=== PATIENT | female | born 1970 | race Caucasian/White ===

== ENCOUNTER 2021-04-23 12:19 | Emergency (ER) | payer OTHER, SELFPAY ==
[2021-04-23] VITALS (10 sets, daily range): BP systolic 84–150; BP diastolic 57–92; PULSE 74–94; RESP 18–20; TEMP 37.6; O2SAT 86–98; BMI 34.0
--- NOTE | 2021-04-23 13:00 | PC.NURSE ---
Reports that she has been ill since Sunday with cough, muscle ache, abdominal pain, and fatigue. Tested on Sunday at [facility] and found to be positive for covid. Reports abdominal pain with a rating of 8 and describes as sharp.
--- NOTE | 2021-04-23 13:08 | XRR_ITS ---
PROCEDURE INFORMATION: Exam: XR Chest Exam date and time: 04/23/2021 1:08 PM Age: 50 years old Clinical indication: Shortness of breath; Additional info: Covid+, SOB TECHNIQUE: Imaging protocol: XR of the chest. Views: 1 view. COMPARISON: No relevant prior studies available. FINDINGS: Lungs: Unremarkable. No consolidation. Pleural spaces: Unremarkable. No pleural effusion. No pneumothorax. Heart/Mediastinum: Unremarkable. No cardiomegaly. Bones/joints: Unremarkable. XR/XR chest 1V portable [id number] IMPRESSION: No acute findings.
--- NOTE | 2021-04-23 13:13 | W.ED.COVID ---
HPI - COVID General: Chief Complaint: COVID symptoms Stated Complaint: COVID+:FEVER,N/V/D,BODY ACHES,FATIGUE Time Seen by Provider: 04/23/21 12:52 Source: patient, RN notes reviewed and old records reviewed Mode of arrival: ambulatory Limitations: no limitations Triage information: Has fever, cough or shortness of breath. No known COVID + exposure last 14 days History of Present Illness: HPI Narrative: Patient is a 50-year-old female who presents to the emergency department with fever, cough, shortness of breath, nausea and vomiting. Symptoms started 6 days ago and 4 days ago she got tested and tested positive for COVID-19. She has been gradually feeling worse and has gotten to the point where she is so weak and almost too weak to get up so she came into the emergency department to be evaluated. On arrival she was hypoxic in triage with oxygen saturation about 88 percent on room air. She was also hypotensive at the time with blood pressure 84/57. She was then placed on oxygen at 2 L/min following which her saturation improved to around 92-95. MD complaint: known COVID positive Prior covid testing: yes, results known Prior testing date: 04/18/21 COVID 19 common symptoms: positive fever(s), chills, cough, dyspnea, fatigue, body aches, nausea, vomiting and diarrhea COVID 19 other sytmptoms: positive requiring oxygen and lethargy; negative chest pressure, chest pain, pleuritic pain, respiratory distress, cyanosis, confusion, new neurological complaints or other concerning symptoms Onset (ago): day(s) (6) Severity: severe COVID Results: No Data to Display Review of Systems General: Reports: 10 or more systems reviewed and unremarkable except in HPI and below Const: Reports: fever(s), chills, body aches and fatigue Card: Denies: chest pain Resp: Reports: dyspnea GI: Reports: nausea, vomiting and diarrhea Neuro: Denies: confusion Physical Exam Const: COMMON NORMALS: no acute distress, average body habitus, patient oriented x3, no limitations, healthy appearing, alert and well nourished HENMT: COMMON NORMALS: normocephalic, atraumatic and moist oral mucous membranes HEAD & SCALP: normocephalic and atraumatic Neck/C-Spine: COMMON NORMALS: no meningeal signs and no JVD Resp: COMMON NORMALS: normal respiratory effort, No retractions, No use of accessory muscles, clear to auscultation bilaterally and percussion normal AUSCULTATION: clear to auscultation bilaterally PERCUSSION: percussion normal Cardio: COMMON NORMALS: no JVD, regular rate, regular rhythm, S1 normal heart sound present, S2 normal heart sound present, No gallops present (Cardio), No clicks present (Cardio), No murmurs present (Cardio), No rub (Cardio) and Peripheral pulses 2+ throughout RATE: regular rate RHYTHM: regular rhythm HEART SOUNDS: S1 normal heart sound present and S2 normal heart sound present PERIPHERAL PULSES: Peripheral pulses 2+ throughout GI: COMMON NORMALS: Normal to inspection, nondistended, normoactive bowel sounds present, Soft to palpation, non-tender, No hepatosplenomegaly present, no masses and no bruits PALPATION: Yes Soft to palpation and Yes No hepatosplenomegaly present Extremity: COMMON NORMALS: normal to inspection, full ROM, capillary refill normal, no calf tenderness and no pedal edema Neuro: COMMON NORMALS: patient oriented x3 SENSORIUM/ORIENTATION: Yes alert MENINGEAL SIGNS: Yes no meningeal signs Skin: COMMON NORMALS: no rashes or lesions noted, no wounds, turgor normal, no jaundice, no petechiae and no mottling GENERAL SKIN EXAM: no rashes or lesions noted and turgor normal Course Reevaluation(s): Reevaluation #1: Discussed her lab and imaging findings with her. No significant findings. Oxygen saturation improved with 2 L of oxygen. Inflammatory markers are not significantly elevated. We will discharge her home with a prescription for oral dexamethasone and she is placed on home oxygen. She voiced understanding and is in agreement with the plan. Time: 15:44 Vital Signs: Vital signs: Vital Signs Temperature 99.6 F 04/23/21 12:50 Pulse Rate 91 04/23/21 17:25 Respiratory Rate 18 04/23/21 17:25 Blood Pressure 130/92 04/23/21 17:25 Pulse Oximetry 98 04/23/21 17:25 MDM - COVID MDM Narrative: Medical decision making narrative: 50-year-old female patient with COVID-19 and who was feeling progressively worse. In the emergency department she was noted to be mildly hypoxic and requiring 2 L/min of oxygen. Inflammatory markers not significantly elevated and she is discharged home with a prescription for oral dexamethasone and home oxygen. Chest x-ray was negative. Medical Records: Attestation: I reviewed the patient's medical records. Lab Data: Attestation: I reviewed the patient's lab results. Labs: Lab Results 04/23/21 04/23/21 04/23/21 Range/Units 13:59 13:59 13:59 WBC 3.7 L (4.0-10.0) 10^3/ uL RBC 5.20 (4.1-5.3) 10^6/u L Hgb 14.3 (11.5-15.3) g/dL Hct 45.4 (37.0-47.0) % MCV 87.3 (81-99) fL MCH 27.5 L (28.0-34.0) pg MCHC 31.5 (30.0-36.0) g/dL RDW 14.6 (12.1-15.1) % Plt Count 102 L (130-400) 10^3/c mm MPV 12.5 H (7.4-10.4) fL Neut % (Auto) 71.8 % Lymph % (Auto) 18.3 % [place] % (Auto) 9.3 % Eos % (Auto) 0.0 % Baso % (Auto) 0.3 % Neut # (Auto) 2.63 (1.8-7.7) 10^3/u L Lymph # (Auto) 0.7 L (0.8-4.8) 10^3/u L [place] # (Auto) 0.3 (0.2-0.9) 10^3/u L Eos # (Auto) 0.0 (0.0-0.8) 10^3/u L Baso # (Auto) 0.0 (0.0-0.1) 10^3/u L Nucleated RBC % (a uto) 0 % Nucleated RBCs # 0.0 /100WBC Fibrinogen 398 (174-498) mg/dL D-Dimer 0.36 (0-0.59) ug/mIFE U Sodium 141 (136-145) mmol/L Potassium 3.5 (3.5-5.1) mmol/L Chloride 102 (98-107) mmol/L Carbon Dioxide 25 (22-29) mmol/L Anion Gap 17.5 (5-19) BUN 11 (6-20) mg/dL Creatinine 0.9 (0.5-0.9) mg/dL GFR Calculation 65.8 L (90-130) mL/min Glucose 102 (65-115) mg/dL Calculated Osmolal ity 292 (285-295) mOsm/k g Lactic Acid (0.5-2.2) mmol/L Calcium 8.3 L (8.5-10.5) mg/dL Ferritin 94 (15-150) ng/mL Total Bilirubin 0.2 (0.15-1.2) mg/dL AST 17 (0-32) U/L ALT 11 (0-33) U/L Alkaline Phosphata se 35 (35-105) IU/L Lactate Dehydrogen ase 255 H (135-214) U/L Creatine Kinase 68 (26-192) U/L C-Reactive Protein 22.0 H (0.0-4.9) mg/L Total Protein 6.7 (6.6-8.7) g/dL Albumin 3.9 (3.5-5.2) g/dL Globulin 2.8 (1.3-4.6) g/dL Procalcitonin 0.06 (0-0.5) ng/mL 04/23/21 Range/Units 13:59 WBC (4.0-10.0) 10^3/ uL RBC (4.1-5.3) 10^6/u L Hgb (11.5-15.3) g/dL Hct (37.0-47.0) % MCV (81-99) fL MCH (28.0-34.0) pg MCHC (30.0-36.0) g/dL RDW (12.1-15.1) % Plt Count (130-400) 10^3/c mm MPV (7.4-10.4) fL Neut % (Auto) % Lymph % (Auto) % [place] % (Auto) % Eos % (Auto) % Baso % (Auto) % Neut # (Auto) (1.8-7.7) 10^3/u L Lymph # (Auto) (0.8-4.8) 10^3/u L [place] # (Auto) (0.2-0.9) 10^3/u L Eos # (Auto) (0.0-0.8) 10^3/u L Baso # (Auto) (0.0-0.1) 10^3/u L Nucleated RBC % (a uto) % Nucleated RBCs # /100WBC Fibrinogen (174-498) mg/dL D-Dimer (0-0.59) ug/mIFE U Sodium (136-145) mmol/L Potassium (3.5-5.1) mmol/L Chloride (98-107) mmol/L Carbon Dioxide (22-29) mmol/L Anion Gap (5-19) BUN (6-20) mg/dL Creatinine (0.5-0.9) mg/dL GFR Calculation (90-130) mL/min Glucose (65-115) mg/dL Calculated Osmolal ity (285-295) mOsm/k g Lactic Acid 0.9 (0.5-2.2) mmol/L Calcium (8.5-10.5) mg/dL Ferritin (15-150) ng/mL Total Bilirubin (0.15-1.2) mg/dL AST (0-32) U/L ALT (0-33) U/L Alkaline Phosphata se (35-105) IU/L Lactate Dehydrogen ase (135-214) U/L Creatine Kinase (26-192) U/L C-Reactive Protein (0.0-4.9) mg/L Total Protein (6.6-8.7) g/dL Albumin (3.5-5.2) g/dL Globulin (1.3-4.6) g/dL Procalcitonin (0-0.5) ng/mL Imaging Data: CXR: Attestation: I personally reviewed and interpreted this imaging study as follows: Radiologist's impression: [address] [id number] ReportSigned Patient: Marly Deal #: [id number]: 1970Acct#:[id number]/Sex: 50 / FADM Date: 04/23/21Loc: ERRoom/Bed:Attending Dr: Ordering Provider/Ordering MD: Ignacio Mccracken MD, [facility] [place] Date of Service: 04/23/21 Procedure(s): XR chest 1V portable [id number] Accession Number(s): [id number] Report Number: [id number] PROCEDURE INFORMATION: Exam: XR Chest Exam date and time: 04/23/2021 1:08 PM Age: 50 years old Clinical indication: Shortness of breath; Additional info: Covid+, SOB TECHNIQUE: Imaging protocol: XR of the chest. Views: 1 view. COMPARISON: No relevant prior studies available. FINDINGS: Lungs: Unremarkable. No consolidation. Pleural spaces: Unremarkable. No pleural effusion. No pneumothorax. Heart/Mediastinum: Unremarkable. No cardiomegaly. Bones/joints: Unremarkable. XR/XR chest 1V portable [id number] IMPRESSION: No acute findings. Dictated By:Yan Kulkarni DOSigned By:Yan Kulkarni DOSigned Date/Time:04/23/211454DD/ 49 COVID Results: No Data to Display Discharge Plan Discharge Patient Disposition: Home Clinical Impression: Hypoxia, COVID-19 Condition: Stable Prescriptions: New dexamethasone 6 mg tablet 6 mg PO DAILY Qty: 5 RF: 0 Continued Mirena 20 mcg/24 hours (6 yrs) 52 mg intrauterine device See Rx Instructions .ROUTE .COMPLEX RF: 0 atorvastatin 10 mg tablet 10 mg PO DAILY RF: 0 Toprol XL 50 mg tablet extended release 24 hr 50 mg PO DAILY RF: 0 alprazolam 0.5 mg tablet 0.5 mg PO BID RF: 0 bupropion HCl 200 mg tablet sustained-release 12 hr 200 mg PO BID RF: 0 Discharge Orders: Discharge ED (Routine); Ordered 04/23/21 Ordered By: Ignacio Mccracken Other Ambulatory Orders: DME: Oxygen (Order) Location: None Selected Ordered By: Ignacio Mccracken Discharge Diet: Usual diet Discharge Activity: Increase activity as tolerated Patient Instructions: Viral Syndrome (ED) Activity Restrictions/Additional Instructions: Return for any new or worsening symptoms. Follow up with your primary care provider within 3 days via telemedicine. Monitor your oxygen saturation while on oxygen, if it falls and stays below 90% then please return to be evaluated. Take the steroid as prescribed. Continue your home medications. Coding Level of Care Code ED Cycle Counter for Jonasg Fwd Exam Comprehensive
[2021-04-23] MEDS: ondansetron 2 mg/ML SDV 2 mL 4 MG IVP (13:43)
[2021-04-23] MEDS: sodium chloride 0.9% 1,000 ML 999 ML IV (13:44)
[2021-04-23 14:20] LABS: Basophils % 0.3 %; Hematocrit 45.4 % (37.0-47.0); Hemoglobin 14.3 g/dL (11.5-15.3); Lymphocytes # 0.7 10^3/uL (0.8-4.8); Lymphocytes % 18.3 %; Mean Corpuscular HGB Conc 31.5 g/dL (30.0-36.0); Mean Corpuscular Hemoglobin 27.5 pg (28.0-34.0); Mean Corpuscular Volume 87.3 fL (81-99); Mean Platelet Volume 12.5 fL (7.4-10.4); Monocytes # 0.3 10^3/uL (0.2-0.9); Monocytes % 9.3 %; Neutrophils # 2.63 10^3/uL (1.8-7.7); Neutrophils % 71.8 %; Nucleated Red Blood Cells % 0 %; Platelet Count 102 10^3/cmm (130-400); Red Cell Distribution Width 14.6 % (12.1-15.1); White Blood Count 3.7 10^3/uL (4.0-10.0)
[2021-04-23 14:40] LABS: Lactic Sepsis W/Reflex 0.9 mmol/L (0.5-2.2)
[2021-04-23 14:46] LABS: Alanine Aminotransferase 11 U/L (0-33); Albumin Level 3.9 g/dL (3.5-5.2); Alkaline Phosphatase 35 IU/L (35-105); Anion Gap 17.5 (5-19); Aspartate Amino Transferase 17 U/L (0-32); Blood Urea Nitrogen 11 mg/dL (6-20); Calcium 8.3 mg/dL (8.5-10.5); Carbon Dioxide 25 mmol/L (22-29); Chloride 102 mmol/L (98-107); Creatine Phosphokinase 68 U/L (26-192); Ferritin 94 ng/mL (15-150); Globulin 2.8 g/dL (1.3-4.6); Glomerular Filtration Rate 65.8 mL/min (90-130); Glucose 102 mg/dL (65-115); Lactate Dehydrogenase 255 U/L (135-214); Osmolality Calculated 292 mOsm/kg (285-295); Potassium 3.5 mmol/L (3.5-5.1); Sodium 141 mmol/L (136-145); Total Bilirubin 0.2 mg/dL (0.15-1.2); Total Protein 6.7 g/dL (6.6-8.7)
[2021-04-23 14:52] LABS: Procalcitonin 0.06 ng/mL (0-0.5)
[2021-04-23 14:57] LABS: D Dimer 0.36 ug/mIFEU (0-0.59)
[2021-04-23 15:34] LABS: Fibrinogen 398 mg/dL (174-498)
[2021-04-23] MEDS: dexamethasone 4 mg/mL INJ 6 MG IVP (17:09)
== END 2021-04-23 17:25 | disposition home or self-care (01) ==
PROVIDERS: Emergency Provider Family Medicine
DX: U07.1 COVID-19 (principal); R09.02 Hypoxemia
CPT/HCPCS: 71045; 80053; 82550; 82728; 83605; 83615; 84145; 85025; 85378; 85384; 86140; 96361; 96374; 96375; 99284; J1100; J2405; J7030

== ENCOUNTER 2021-04-27 15:55 | Emergency (ER) | payer OTHER, SELFPAY ==
[2021-04-27] VITALS (7 sets, daily range): BP systolic 123–141; BP diastolic 83–92; PULSE 73–86; RESP 13–22; TEMP 37.1; O2SAT 92–94; BMI 32.5
--- NOTE | 2021-04-27 18:14 | XRR_ITS ---
PROCEDURE INFORMATION: Exam: XR Chest Exam date and time: 04/27/2021 6:14 PM Age: 50 years old Clinical indication: Shortness of breath and other: Low o2; Sternal or substernal pain; Additional info: Cp TECHNIQUE: Imaging protocol: XR of the chest. Views: 1 view. COMPARISON: CR (CHEST, ) 04/23/2021 2:01 PM FINDINGS: Lungs: Patchy ground-glass opacities in the peripheral right mid lung and left lung base. Pleural spaces: Unremarkable. No pleural effusion. No pneumothorax. Heart/Mediastinum: Unremarkable. No cardiomegaly. Bones/joints: Unremarkable. XR/XR chest 1V portable [id number] IMPRESSION: Ground-glass opacities in both lungs are suspicious for pneumonia.
--- NOTE | 2021-04-27 19:22 | ECG_ITS ---
[facility] ED Test Date: 2021-04-27 Pat Name: Marly Deal Department: Room: Gender: Female [employer]ist: : 1970 Requested By: Eva Best Order Number: [id number] Blanche MD: Jenni Niño M.D. Measurements Intervals [place] Rate: 76 P: 45 TX: 141 QRS: 4 QRSD: 92 T: -27 QT: 388 QTc: 437 Interpretive Statements SINUS RHYTHM POSSIBLE LEFT ATRIAL ENLARGEMENT [-0.1mV P WAVE IN V1/V2] POSSIBLE LEFT VENTRICULAR HYPERTROPHY [VOLTAGE CRITERIA PLUS LAE OR QRS WIDENING] ST DEVIATION AND MODERATE T-WAVE ABNORMALITY, CONSIDER ANTEROLATERAL ISCHEMIA [-0.1+ mV T WAVE IN V3-V6] ST DEVIATION AND MODERATE T-WAVE ABNORMALITY, CONSIDER INFERIOR ISCHEMIA [-0.1+ mV T WAVE IN II/aVF] No previous ECG available for comparison Electronically Signed On 05-02-2021 0:28:07 CDT by Jenni Niño M.D. [id number]
--- NOTE | 2021-04-27 19:32 | ED_ITS ---
HPI - COVID General: Chief Complaint: COVID symptoms Stated Complaint: COVID+: Time Seen by Provider: 04/27/21 19:18 Source: patient Mode of arrival: ambulatory Limitations: no limitations Triage information: Has fever, cough or shortness of breath . Exposure to COVID + person last 14 days History of Present Illness: HPI Narrative: 50-year-old female has been having Covid symptoms for a week and did test positive for Covid. At that time she was placed on 2 L oxygen. She states she had increasing shortness of breath is now increasing 4 L of oxygen she states she had increased cough as well dyspnea especially on exertion. Said low-grade fevers. Denies any pain. Denies any vomiting or diarrhea. COVID 19 common symptoms: positive non-productive cough and dyspnea; negative fever(s), chills, body aches, headache(s), throat pain, nausea, vomiting or colin rrhea COVID 19 other sytmptoms: negative chest pain COVID Results: No Data to Display Review of Systems Const: Denies: fever(s), chills, body aches or change in appetite Eyes: Denies: blurry vision or eye discomfort ENMT: Denies: throat pain or dental pain Card: Denies: chest pain Resp: Reports: dyspnea and non-productive cough GI: Denies: abdominal pain, nausea, vomiting or diarrhea : Denies: dysuria Musc: Denies: neck pain or back pain Skin/Breast: Denies: rash Neuro: Denies: headache(s) Psych: Denies: depression Santi/Lymph: Denies: easy bruising All/Imm: Denies: urticaria Physical Exam Const: COMMON NORMALS: no acute distress, patient oriented x3 and healthy appearing HENMT: COMMON NORMALS: normocephalic and atraumatic HEAD & SCALP: normocephalic and atraumatic Eye: COMMON NORMALS: Equal, round and reactive pupils present and EOMs intact bilaterally PUPIL: Yes Equal, round and reactive pupils present Neck/C-Spine: COMMON NORMALS: full ROM and supple Chest: COMMONS NORMALS: normal inspection of the chest and normal palpation of entire chest wall Resp: COMMON NORMALS: No retractions and No use of accessory muscles EFFORT & INSPECTION: Yes tachypneic AUSCULTATION: rales Cardio: COMMON NORMALS: regular rate, regular rhythm and No murmurs present (Cardio) RATE: regular rate RHYTHM: regular rhythm GI: COMMON NORMALS: Normal to inspection, nondistended, normoactive bowel sounds present, Soft to palpation, non-tender and no masses PALPATION: Yes Soft to palpation Extremity: COMMON NORMALS: normal to inspection and full ROM Neuro: COMMON NORMALS: patient oriented x3, moves all extremities and no focal motor deficits Psych: COMMON NORMALS: mental status grossly normal, Normal thought process present and cooperative THOUGHT PROCESS: Normal thought process present Skin: COMMON NORMALS: no rashes or lesions noted and no wounds GENERAL SKIN EXAM: no rashes or lesions noted Course Vital Signs: Vital signs: Vital Signs Temperature 98.7 F 04/27/21 17:15 Pulse Rate 86 04/27/21 23:55 Respiratory Rate 22 H 04/27/21 23:55 Blood Pressure 123/83 04/27/21 23:55 Pulse Oximetry 92 04/27/21 23:55 MDM - COVID MDM Narrative: Medical decision making narrative: Patient presents here with Covid pneumonia. She is having increasing hypoxia and had to turn up her oxygen. Patient CT scan shows no pulmonary [place] but does show COVID-19 pneumonia. Spoke to physician at [facility] in [place] and will transfer there due to bed availability. Lab Data: Labs: Lab Results 04/27/21 04/27/21 04/27/21 Range/Units 19:42 19:42 19:42 WBC 5.7 (4.0-10.0) 10^3/ uL RBC 5.31 H (4.1-5.3) 10^6/u L Hgb 14.5 (11.5-15.3) g/dL Hct 45.3 (37.0-47.0) % MCV 85.3 (81-99) fL MCH 27.3 L (28.0-34.0) pg MCHC 32.0 (30.0-36.0) g/dL RDW 14.4 (12.1-15.1) % Plt Count 217 (130-400) 10^3/c mm MPV 11.6 H (7.4-10.4) fL Neut % (Auto) 73.0 % Lymph % (Auto) 14.1 % [place] % (Auto) 12.2 % Eos % (Auto) 0.0 % Baso % (Auto) 0.2 % Neut # (Auto) 4.13 (1.8-7.7) 10^3/u L Lymph # (Auto) 0.8 (0.8-4.8) 10^3/u L [place] # (Auto) 0.7 (0.2-0.9) 10^3/u L Eos # (Auto) 0.0 (0.0-0.8) 10^3/u L Baso # (Auto) 0.0 (0.0-0.1) 10^3/u L Nucleated RBC % (a uto) 0 % Nucleated RBCs # 0.0 /100WBC D-Dimer 0.73 H (0-0.59) ug/mIFE U Specimen Type Sample Site ABG pH (7.35-7.45) ABG pCO2 (35-45) mmHg ABG pO2 (80.0-100.0) mmH g ABG HCO3 (22-26) mmol/L ABG Base Excess (-2.0-2.0) mmol/ L Patricio Test Hematocrit (37-47) % O2 Delivery Device O2 Liters/Min % Emergency Service Worker ID Sodium 139 (136-145) mmol/L Potassium 3.2 L (3.5-5.1) mmol/L Chloride 98 (98-107) mmol/L Carbon Dioxide 27 (22-29) mmol/L Anion Gap 17.2 (5-19) BUN 12 (6-20) mg/dL Creatinine 0.5 (0.5-0.9) mg/dL GFR Calculation 129.6 (90-130) mL/min Glucose 124 H (65-115) mg/dL Calculated Osmolal ity 289 (285-295) mOsm/k g Lactic Acid (0.5-2.2) mmol/L Calcium 8.5 (8.5-10.5) mg/dL Total Bilirubin 0.3 (0.15-1.2) mg/dL AST 12 (0-32) U/L ALT 7 (0-33) U/L Alkaline Phosphata se 35 (35-105) IU/L Troponin T Baselin e (0-10) ng/L Troponin T 120 Min [place] (0-10) ng/L Delta Troponin T (0-10) ABS# C-Reactive Protein 12.9 H (0.0-4.9) mg/L NT-Pro-B Natriuret Pep 179 H (0-125) pg/mL Total Protein 7.1 (6.6-8.7) g/dL Albumin 3.8 (3.5-5.2) g/dL Globulin 3.3 (1.3-4.6) g/dL 04/27/21 04/27/21 04/27/21 Range/Units 19:42 19:42 20:06 WBC (4.0-10.0) 10^3/ uL RBC (4.1-5.3) 10^6/u L Hgb (11.5-15.3) g/dL Hct (37.0-47.0) % MCV (81-99) fL MCH (28.0-34.0) pg MCHC (30.0-36.0) g/dL RDW (12.1-15.1) % Plt Count (130-400) 10^3/c mm MPV (7.4-10.4) fL Neut % (Auto) % Lymph % (Auto) % [place] % (Auto) % Eos % (Auto) % Baso % (Auto) % Neut # (Auto) (1.8-7.7) 10^3/u L Lymph # (Auto) (0.8-4.8) 10^3/u L [place] # (Auto) (0.2-0.9) 10^3/u L Eos # (Auto) (0.0-0.8) 10^3/u L Baso # (Auto) (0.0-0.1) 10^3/u L Nucleated RBC % (a uto) % Nucleated RBCs # /100WBC D-Dimer (0-0.59) ug/mIFE U Specimen Type Arterial Sample Site Radial, right ABG pH 7.49 H (7.35-7.45) ABG pCO2 41.7 (35-45) mmHg ABG pO2 65.5 L (80.0-100.0) mmH g ABG HCO3 31.5 H (22-26) mmol/L ABG Base Excess 7.2 H (-2.0-2.0) mmol/ L Patricio Test Pos Hematocrit 45.5 (37-47) % O2 Delivery Device Nc O2 Liters/Min 5.0 % Emergency Service Worker ID Posjo Sodium (136-145) mmol/L Potassium (3.5-5.1) mmol/L Chloride (98-107) mmol/L Carbon Dioxide (22-29) mmol/L Anion Gap (5-19) BUN (6-20) mg/dL Creatinine (0.5-0.9) mg/dL GFR Calculation (90-130) mL/min Glucose (65-115) mg/dL Calculated Osmolal ity (285-295) mOsm/k g Lactic Acid 1.5 (0.5-2.2) mmol/L Calcium (8.5-10.5) mg/dL Total Bilirubin (0.15-1.2) mg/dL AST (0-32) U/L ALT (0-33) U/L Alkaline Phosphata se (35-105) IU/L Troponin T Baselin e 6 (0-10) ng/L Troponin T 120 Min [place] (0-10) ng/L Delta Troponin T (0-10) ABS# C-Reactive Protein (0.0-4.9) mg/L NT-Pro-B Natriuret Pep (0-125) pg/mL Total Protein (6.6-8.7) g/dL Albumin (3.5-5.2) g/dL Globulin (1.3-4.6) g/dL 04/27/21 Range/Units 22:31 WBC (4.0-10.0) 10^3/ uL RBC (4.1-5.3) 10^6/u L Hgb (11.5-15.3) g/dL Hct (37.0-47.0) % MCV (81-99) fL MCH (28.0-34.0) pg MCHC (30.0-36.0) g/dL RDW (12.1-15.1) % Plt Count (130-400) 10^3/c mm MPV (7.4-10.4) fL Neut % (Auto) % Lymph % (Auto) % [place] % (Auto) % Eos % (Auto) % Baso % (Auto) % Neut # (Auto) (1.8-7.7) 10^3/u L Lymph # (Auto) (0.8-4.8) 10^3/u L [place] # (Auto) (0.2-0.9) 10^3/u L Eos # (Auto) (0.0-0.8) 10^3/u L Baso # (Auto) (0.0-0.1) 10^3/u L Nucleated RBC % (a uto) % Nucleated RBCs # /100WBC D-Dimer (0-0.59) ug/mIFE U Specimen Type Sample Site ABG pH (7.35-7.45) ABG pCO2 (35-45) mmHg ABG pO2 (80.0-100.0) mmH g ABG HCO3 (22-26) mmol/L ABG Base Excess (-2.0-2.0) mmol/ L Patricio Test Hematocrit (37-47) % O2 Delivery Device O2 Liters/Min % Emergency Service Worker ID Sodium (136-145) mmol/L Potassium (3.5-5.1) mmol/L Chloride (98-107) mmol/L Carbon Dioxide (22-29) mmol/L Anion Gap (5-19) BUN (6-20) mg/dL Creatinine (0.5-0.9) mg/dL GFR Calculation (90-130) mL/min Glucose (65-115) mg/dL Calculated Osmolal ity (285-295) mOsm/k g Lactic Acid (0.5-2.2) mmol/L Calcium (8.5-10.5) mg/dL Total Bilirubin (0.15-1.2) mg/dL AST (0-32) U/L ALT (0-33) U/L Alkaline Phosphata se (35-105) IU/L Troponin T Baselin e (0-10) ng/L Troponin T 120 Min [place] 6.00 (0-10) ng/L Delta Troponin T 0 (0-10) ABS# C-Reactive Protein (0.0-4.9) mg/L NT-Pro-B Natriuret Pep (0-125) pg/mL Total Protein (6.6-8.7) g/dL Albumin (3.5-5.2) g/dL Globulin (1.3-4.6) g/dL Imaging Data: CXR: Attestation: I personally reviewed and interpreted this imaging study as follows: Radiologist's impression: [employer] [place] [address] XRay Report Signed Patient: Marly Deal Unit #: [id number] : 1970 Age/Sex: 50 / F ADM Date: 04/27/21 Loc: ER Room/Bed: Attending Dr: Ordering Provider/Ordering MD: Eva Best MD Date of Service: 04/27/21 Procedure(s): XR chest 1V portable [id number] Accession Number(s): [id number] Report Number: [id number] PROCEDURE INFORMATION: Exam: XR Chest Exam date and time: 04/27/2021 6:14 PM Age: 50 years old Clinical indication: Shortness of breath and other: Low o2; Sternal or substernal pain; Additional info: Cp TECHNIQUE: Imaging protocol: XR of the chest. Views: 1 view. COMPARISON: CR (CHEST, ) 04/23/2021 2:01 PM FINDINGS: Lungs: Patchy ground-glass opacities in the peripheral right mid lung and left lung base. Pleural spaces: Unremarkable. No pleural effusion. No pneumothorax. Heart/Mediastinum: Unremarkable. No cardiomegaly. Bones/joints: Unremarkable. XR/XR chest 1V portable [id number] IMPRESSION: Ground-glass opacities in both lungs are suspicious for pneumonia. CT Chest: Attestation: I personally reviewed and interpreted this imaging study as follows: Radiologist's impression: [employer] [place] [address] CT Scan Report Signed Patient: Marly Deal Unit #: [id number] : 1970 Acct#:[id number] Age/Sex: 50 / F ADM Date: 04/27/21 Loc: ER Room/Bed: Attending Dr: Ordering Provider/Ordering MD: Eva Best MD Date of Service: 04/27/21 Procedure(s): CT angio chest PE protcl [id number] Accession Number(s): [id number] Report Number: [id number] PROCEDURE INFORMATION: Exam: CTA Chest With Contrast Exam date and time: 04/27/2021 9:03 PM Age: 50 years old Clinical indication: Shortness of breath; Patient HX: Covid +. Elevated d dimer. ; Additional info: Cp TECHNIQUE: Imaging protocol: Computed tomographic angiography of the chest with contrast. 3D rendering (Not supervised by radiologist): MIP and/or 3D reconstructed images were created by the technologist. Radiation optimization: All CT scans at this facility use at least one of these dose optimization techniques: automated exposure control; mA and/or kV adjustment per patient size (includes targeted exams where dose is matched to clinical indication); or iterative reconstruction. Contrast material: OMNI 350; Contrast volume: 69 ml; Contrast route: INTRAVENOUS (IV); COMPARISON: CR (CHEST, ) 04/27/2021 7:21 PM RADIATION DOSE METRICS: Total DLP (mGy-cm): 546.5 FINDINGS: Pulmonary arteries: Normal. No pulmonary emboli. Aorta: Borderline aneurysmal dilatation of the ascending thoracic aorta measuring 3.9 cm in diameter. No aortic dissection. Thyroid: 1.1 cm peripherally calcified nodule in the left thyroid lobe. Ultrasound follow-up is recommended. Lungs: Diffuse patchy ground-glass opacities within the peripheral lungs. Peripheral linear consolidations in the lower lobes. Pleural spaces: Unremarkable. No pneumothorax. No pleural effusion. Heart: Unremarkable. No cardiomegaly. No pericardial effusion. Lymph nodes: Prominent mediastinal and hilar lymph nodes are most likely reactive. Bones/joints: Unremarkable. No acute fracture. Soft tissues: Unremarkable. CT/CT angio chest PE protcl [id number] IMPRESSION: 1. No evidence for pulmonary embolus. 2. Multilobar ground-glass opacities, consistent with COVID-19 pneumonia. COMMENTS: Consistent with the [employer]'s Incidental Findings Committee white paper (J Am Davi Radiol 2015): In patients aged 35 years and older with an incidental thyroid nodule equal to or greater than 1.[address], MRI or extrathyroidal US, further evaluation with dedicated thyroid US is recommended for patients with normal life expectancy and without comorbidities. For smaller nodules without suspicious features, no further evaluation or follow up is recommended. Radiation Dose CTDIVOL = (mGy): DLP = 546.5 (mGy-cm) Dictated By: Demetrius Escoto Signed By: Demetrius Escoto Signed Date/Time: 04/27/212142 DD/ 41 EKG Data: EKG 1: Attestation: I personally reviewed and interpreted this EKG as follows: EKG interpretation date: 04/27/21 EKG interpretation time: 19:57 Interpretation: nsr hr [address] or t wave abnormalities qrs 92 qtc 418 COVID Results: No Data to Display Discharge Plan Discharge Patient Disposition: Xfer Short-Term Hosp Clinical Impression: COVID-19 Condition: Stable Coding Level of Care Code ED Medical Assistant for Chg Fwd Exam Comprehensive
[2021-04-27] MEDS: albuterol 8 gm MDI 2 PUFF INHALATION (19:34)
[2021-04-27 19:53] LABS: Basophils % 0.2 %; Hematocrit 45.3 % (37.0-47.0); Hemoglobin 14.5 g/dL (11.5-15.3); Lymphocytes # 0.8 10^3/uL (0.8-4.8); Lymphocytes % 14.1 %; Mean Corpuscular Hemoglobin 27.3 pg (28.0-34.0); Mean Corpuscular Volume 85.3 fL (81-99); Mean Platelet Volume 11.6 fL (7.4-10.4); Monocytes # 0.7 10^3/uL (0.2-0.9); Monocytes % 12.2 %; Neutrophils # 4.13 10^3/uL (1.8-7.7); Nucleated Red Blood Cells % 0 %; Platelet Count 217 10^3/cmm (130-400); Red Blood Count 5.31 10^6/uL (4.1-5.3); Red Cell Distribution Width 14.4 % (12.1-15.1); White Blood Count 5.7 10^3/uL (4.0-10.0)
--- NOTE | 2021-04-27 20:06 | ECG_ITS ---
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 Measurements Intervals [place] Rate: 76 P: 45 MI: 141 QRS: 4 QRSD: 92 T: -27 QT: 388 QTc: 437 Interpretive Statements SINUS RHYTHM POSSIBLE LEFT ATRIAL ENLARGEMENT [-0.1mV P WAVE IN V1/V2] POSSIBLE LEFT VENTRICULAR HYPERTROPHY [VOLTAGE CRITERIA PLUS LAE OR QRS WIDENING] ST DEVIATION AND MODERATE T-WAVE ABNORMALITY, CONSIDER ANTEROLATERAL ISCHEMIA [-0.1+ mV T WAVE IN V3-V6] ST DEVIATION AND MODERATE T-WAVE ABNORMALITY, CONSIDER INFERIOR ISCHEMIA [-0.1+ mV T WAVE IN II/aVF] No previous ECG available for comparison Electronically Signed On 05-02-2021 0:28:18 CDT by Jenni Niño M.D. [id number]
[2021-04-27 20:10] LABS: Lactic Sepsis W/Reflex 1.5 mmol/L (0.5-2.2)
[2021-04-27 20:17] LABS: ABG PCO2 41.7 mmHg (35-45); ABG PH Result 7.49 (7.35-7.45); Arterial Blood Gas Hematocrit 45.5 % (37-47); Base Excess ABG 7.2 mmol/L (-2.0-2.0); Blood Gas Allen Test Pos; Blood Gas Sample Site Radial, right; Blood Gas Sample Type Arterial; HCO3 ABG 31.5 mmol/L (22-26); Oxygen Device NC; PO2 ABG 65.5 mmHg (80.0-100.0)
[2021-04-27 20:22] LABS: Alanine Aminotransferase 7 U/L (0-33); Albumin Level 3.8 g/dL (3.5-5.2); Alkaline Phosphatase 35 IU/L (35-105); Anion Gap 17.2 (5-19); Aspartate Amino Transferase 12 U/L (0-32); Blood Urea Nitrogen 12 mg/dL (6-20); C Reactive Protein 12.9 mg/L (0.0-4.9); Calcium 8.5 mg/dL (8.5-10.5); Carbon Dioxide 27 mmol/L (22-29); Chloride 98 mmol/L (98-107); Globulin 3.3 g/dL (1.3-4.6); Glomerular Filtration Rate 129.6 mL/min (90-130); Glucose 124 mg/dL (65-115); NT Pro B Type Natriuretic Pept 179 pg/mL (0-125); Osmolality Calculated 289 mOsm/kg (285-295); Potassium 3.2 mmol/L (3.5-5.1); Sodium 139 mmol/L (136-145); Total Bilirubin 0.3 mg/dL (0.15-1.2); Total Protein 7.1 g/dL (6.6-8.7)
[2021-04-27 20:34] LABS: Slide Review Slide Review Perform
[2021-04-27 20:42] LABS: D Dimer 0.73 ug/mIFEU (0-0.59)
[2021-04-27 20:58] LABS: Troponin(5th) Baseline 6 ng/L (0-10)
--- NOTE | 2021-04-27 21:03 | CTR_ITS ---
PROCEDURE INFORMATION: Exam: CTA Chest With Contrast Exam date and time: 04/27/2021 9:03 PM Age: 50 years old Clinical indication: Shortness of breath; Patient HX: Covid +. Elevated d dimer. ; Additional info: Cp TECHNIQUE: Imaging protocol: Computed tomographic angiography of the chest with contrast. 3D rendering (Not supervised by radiologist): MIP and/or 3D reconstructed images were created by the technologist. Radiation optimization: All CT scans at this facility use at least one of these dose optimization techniques: automated exposure control; mA and/or kV adjustment per patient size (includes targeted exams where dose is matched to clinical indication); or iterative reconstruction. Contrast material: OMNI 350; Contrast volume: 69 ml; Contrast route: INTRAVENOUS (IV); COMPARISON: CR (CHEST, ) 04/27/2021 7:21 PM RADIATION DOSE METRICS: Total DLP (mGy-cm): 546.5 FINDINGS: Pulmonary arteries: Normal. No pulmonary emboli. Aorta: Borderline aneurysmal dilatation of the ascending thoracic aorta measuring 3.9 cm in diameter. No aortic dissection. Thyroid: 1.1 cm peripherally calcified nodule in the left thyroid lobe. Ultrasound follow-up is recommended. Lungs: Diffuse patchy ground-glass opacities within the peripheral lungs. Peripheral linear consolidations in the lower lobes. Pleural spaces: Unremarkable. No pneumothorax. No pleural effusion. Heart: Unremarkable. No cardiomegaly. No pericardial effusion. Lymph nodes: Prominent mediastinal and hilar lymph nodes are most likely reactive. Bones/joints: Unremarkable. No acute fracture. Soft tissues: Unremarkable. CT/CT angio chest PE protcl [id number] IMPRESSION: 1. No evidence for pulmonary embolus. 2. Multilobar ground-glass opacities, consistent with COVID-19 pneumonia. COMMENTS: Consistent with the [employer]'s Incidental Findings Committee white paper (J Am Davi Radiol 2015): In patients aged 35 years and older with an incidental thyroid nodule equal to or greater than 1.[address], MRI or extrathyroidal US, further evaluation with dedicated thyroid US is recommended for patients with normal life expectancy and without comorbidities. For smaller nodules without suspicious features, no further evaluation or follow up is recommended. Radiation Dose CTDIVOL = (mGy): DLP = 546.5 (mGy-cm)
[2021-04-27] MEDS: iohexol 300 mg/mL 100 mL Btl IV (21:23)
[2021-04-27] MEDS: dexamethasone 4 mg/mL INJ 10 MG IVP (22:24)
[2021-04-27 22:59] LABS: Troponin 5 2HR Delta 0 ABS# (0-10)
[2021-04-27] MEDS: remdesivir 200 MG in sodium chloride 0.9% (100 ml) 100 ML 100 MG IV (23:33)
[2021-04-28 00:34] VITALS: BP 117/75; PULSE 75; RESP 19; O2SAT 96
[2021-04-28 01:06] VITALS: BP 117/75; PULSE 90; RESP 21; O2SAT 95
--- NOTE | 2021-04-28 01:10 | PC.NURSE ---
Report called to Lili Dumont RN at [facility] at [phone]. Patient left [facility] with [facility] at [phone]
--- NOTE | 2021-04-28 01:16 | PC.NURSE ---
called [facility] transfer team to let them know that pt has left [facility]
== END 2021-04-28 01:06 | disposition short-term general hospital (02) ==
PROVIDERS: Emergency Provider Emergency Medicine
DX: U07.1 COVID-19 (principal); J12.82 Pneumonia due to coronavirus disease 2019
CPT/HCPCS: 36600; 71045; 71275; 80053; 82803; 83605; 83880; 84484; 85025; 85378; 86140; 93005; 94640; 96365; 96375; 99291; J1100; J3535; Q9967